=== PATIENT | female | born 1935 | race Caucasian/White ===

== ENCOUNTER 2021-06-25 09:27 | Day surgery (SDC) | payer MEDICARE, OTHER ==
[2021-06-25] MEDS ORDERED: BUPIVACAINE 0.5% VIAL IJ ONE (09:28)
[2021-06-25] MEDS ORDERED: Depo-Medrol 40 MG/ML IM ONE (09:28)
[2021-06-25] MEDS ORDERED: DIPRIVAN 200 MG/20 ML IV ONE (11:49)
--- NOTE | 2021-06-25 12:17 | XRAY ---
Indication: Right SI joint injection. Intraoperative fluoroscopy provided for 25 seconds. 2 digital spot images submitted for interpretation demonstrates posterior needle tip projecting over the inferior right SI joint. Correlate with intraoperative findings/report.
[2021-06-25] MEDS ORDERED: Lactated Ringers 1,000 ML IV ONE (12:52)
--- NOTE | 2021-06-25 14:15 | XRAY ---
25 seconds fluoroscopy time in surgery for injection of the right SI joint
== END 2021-06-25 12:11 | disposition home or self-care (01) ==
LOC: SDC-PAIN 09:27
PROVIDERS: ATTEND Psychiatry & Neurology Pain Medicine
DX: M46.1 Sacroiliitis, not elsewhere classified (principal); E11.9 Type 2 diabetes mellitus without complications; I10 Essential (primary) hypertension; Z79.899 Other long term (current) drug therapy
CPT/HCPCS: 27096; 72020; 77002; 82947; G0260; 99100; J1030; J2704

== ENCOUNTER 2021-07-22 09:26 | Day surgery (SDC) | payer MEDICARE, OTHER ==
[2021-07-22] MEDS ORDERED: Sodium Chloride 0.9% 10 ML FLUSH Syringe IJ ONE (09:27)
[2021-07-22] MEDS ORDERED: Xylocaine 1% Vial 30 ML PF IJ ONE (09:27)
[2021-07-22] MEDS ORDERED: Depo-Medrol 40 MG/ML IM ONE (09:27)
[2021-07-22] MEDS ORDERED: DIPRIVAN 200 MG/20 ML IV ONE (11:37)
--- NOTE | 2021-07-22 13:01 | XRAY ---
Indication: Lumbar ANNETTE. Intraoperative fluoroscopy provided for 21 seconds. 2 digital spot images submitted for interpretation demonstrates posterior midline needle tip projecting posterior to L1-L2 interspace. Small amount of contrast injected for needle tip placement. Correlate with intraoperative findings/report.
[2021-07-22] MEDS ORDERED: Lactated Ringers 1,000 ML IV ONE (13:36)
--- NOTE | 2021-07-22 13:50 | XRAY ---
21 seconds of fluoroscopy was used in surgery for lumbar ANNETTE.
== END 2021-07-22 12:09 | disposition home or self-care (01) ==
LOC: SDC-PAIN 09:26
PROVIDERS: ATTEND Psychiatry & Neurology Pain Medicine
DX: M54.16 Radiculopathy, lumbar region (principal); E11.9 Type 2 diabetes mellitus without complications; I10 Essential (primary) hypertension; Z79.899 Other long term (current) drug therapy
CPT/HCPCS: 62323; 72100; 77003; 82947; J1030; J2001; J2704; Q9966

== ENCOUNTER 2021-08-26 09:06 | Day surgery (SDC) | payer MEDICARE ==
[2021-08-26] MEDS ORDERED: Depo-Medrol 40 MG/ML IM ONE (09:07)
[2021-08-26] MEDS ORDERED: BUPIVACAINE 0.5% VIAL IJ ONE (09:07)
[2021-08-26] MEDS ORDERED: Lactated Ringers 1,000 ML IV ONE (10:07)
[2021-08-26] MEDS ORDERED: DIPRIVAN 200 MG/20 ML IV ONE (10:25)
--- NOTE | 2021-08-26 11:11 | XRAY ---
11 seconds of fluoroscopy was used in surgery for a right SI joint injection.
--- NOTE | 2021-08-26 11:35 | XRAY ---
Indication: Right SI joint injection. Intraoperative fluoroscopy provided for 11 seconds. 2 digital spot images submitted for interpretation demonstrates posterior needle tip projecting over the inferior right SI joint. Correlate with intraoperative findings/report. Incidental incompletely visualized lower lumbar posterior fusion hardware.
--- NOTE | 2021-08-26 11:35 | XRAY ---
Indication: Right greater trochanter bursa injection. Intraoperative fluoroscopy provided for 10 seconds. Single digital spot image submitted for interpretation demonstrates needle tip lateral to the right greater trochanter. Small amount of contrast injected for needle tip placement. Correlate with intraoperative findings/report.
--- NOTE | 2021-08-26 11:36 | XRAY ---
10 seconds of fluoroscopy was used in surgery for a greater trochanteric bursa injection of the right hip.
== END 2021-08-26 10:55 | disposition home or self-care (01) ==
LOC: SDC-PAIN 09:06
PROVIDERS: ATTEND Psychiatry & Neurology Pain Medicine
DX: M46.1 Sacroiliitis, not elsewhere classified (principal); M70.61 Trochanteric bursitis, right hip; E11.9 Type 2 diabetes mellitus without complications; I10 Essential (primary) hypertension; Z79.899 Other long term (current) drug therapy
CPT/HCPCS: 20610; 27096; 72020; 73501; 77002; 82947; G0260; 99100; J1030; J2704; Q9966

== ENCOUNTER 2021-10-01 08:40 | Day surgery (SDC) | payer MEDICARE ==
[2021-10-01] MEDS ORDERED: Depo-Medrol 40 MG/ML IM ONE (08:41)
[2021-10-01] MEDS ORDERED: Xylocaine 1% Vial 30 ML PF IJ ONE (08:41)
[2021-10-01] MEDS ORDERED: Sodium Chloride 0.9(Preservative Free) 10 ML IJ ONE (08:41)
[2021-10-01] MEDS ORDERED: Lactated Ringers 1,000 ML IV ONE (10:30)
[2021-10-01] MEDS ORDERED: DIPRIVAN 200 MG/20 ML IV ONE (10:32)
--- NOTE | 2021-10-01 10:59 | XRAY ---
Indication: Lumbar ANNETTE. Intraoperative fluoroscopy provided for 17 seconds. 2 digital spot images submitted for interpretation demonstrate midline posterior needle tip projecting posterior to L2-L3 interspace. Small amount of contrast injected for needle tip placement. Correlate with intraoperative findings/report. Incidental incompletely visualized L3-L5 posterior fusion hardware.
--- NOTE | 2021-10-01 11:48 | XRAY ---
17 seconds of fluoroscopy was used in surgery for a lumbar ANNETTE.
== END 2021-10-01 10:57 | disposition home or self-care (01) ==
LOC: SDC-PAIN 08:40
PROVIDERS: ATTEND Psychiatry & Neurology Pain Medicine
DX: M54.16 Radiculopathy, lumbar region (principal); E11.9 Type 2 diabetes mellitus without complications; I10 Essential (primary) hypertension; Z79.899 Other long term (current) drug therapy
CPT/HCPCS: 62323; 72100; 77003; 82947; J1030; J2001; J2704; Q9966